=== PATIENT | male | born 1950 | race Caucasian/White ===

== ENCOUNTER → 2017-11-29 11:48 | Outpatient (CLI) | payer MEDICARE, OTHER, SELFPAY ==
--- NOTE | 2017-11-29 | DI.MRI.S_ITS ---
PROCEDURE: MR KNEE RT WO CON INDICATIONS: RIGHT INTERNAL DERANGEMENT TECHNIQUE: Noncontrast sagittal PD fast spin echo and T2 fast spin echo with fat saturation, sagittal 3-D FLASH with fat saturation; coronal T1 spin echo and PD fast spin echo with fat saturation, and axial PD fast spin echo with fat saturation through the knee. COMPARISON: [facility] [place], CR, XR KNEE ARTHRITIC SERIES RT, 11/13/2017, 14:53. FINDINGS: Image quality: Diagnostic. Bones and joint: There is no acute fracture or dislocation. No suspicious osseous lesions are evident. There is a small knee joint effusion with an associated moderate-sized Stubbs's cyst. Mild edema about the Stubbs's cyst is present. There appears to be a joint body within the region of the femoral notch, measuring approximately 6-7 mm in maximal dimension (image 11, series 3). There is a moderate-sized defect in the hyaline articular cartilage along the weightbearing surface of the medial femoral condyle with underlying degenerative cystic change and reactive marrow edema. Heterogeneity and mild surface irregularity of the hyaline articular cartilage within the lateral tibiofemoral compartment is present. Cruciate ligaments: There is diffuse increased signal identified involving the femoral attachment of the anterior cruciate ligament, suggesting ligamentous sprain and possible partial thickness tearing. The posterior cruciate ligament is intact. Menisci: There is a transverse tear identified extending through the entire length of the medial meniscus at the junction of the body and posterior horn with separation of the meniscal fragments by approximately 10 mm. There may be a displaced meniscal flap extending over the posterior horn of the medial meniscus or the body of the medial meniscus extending into the medial gutter. There is irregular tearing identified involving the antrum posterior attachment of the lateral meniscus with moderate grade partial-thickness tearing evident. Fraying along the free edge of the body of the lateral meniscus is noted. Medial structures: The medial collateral ligament is intact. A very small amount of fluid is contained within the medial collateral ligament bursa. The semimembranosus tendon insertion is intact. The imaged portions of the pes anserinus tendons are unremarkable. No significant fluid is contained within the pes anserinus bursa. Lateral structures: The popliteal tendon is intact. The lateral collateral ligament proper (fibular collateral ligament) and the proximal tibiofibular ligaments are intact. The distal aspect of the biceps femoris tendon and the iliotibial band are intact. Anterior structures: The quadriceps and patellar tendons are intact. There is no significant edema in the infrapatellar fat pad. IMPRESSION: 1. Mild to moderate degenerative changes of the right knee are most pronounced within the medial tibiofemoral compartment. 2. Complex tearing of the medial and lateral menisci as described. 3. Anterior cruciate ligament sprain with possible intrasubstance partial thickness tearing. 4. Small knee joint effusion with an associated probable leaking Stubbs's cyst and small intra-articular joint bodies. Dictated by: Jv Adams M.D. on 11/29/2017 at 12:35 Approved by: Jv Adams M.D. on 11/29/2017 at 12:44
== END ==
PROVIDERS: PCP Family Medicine; Visit Provider Orthopaedic Surgery
DX: S83.231A Complex tear of medial meniscus, current injury, right knee, initial encounter (principal); S83.271A Complex tear of lateral meniscus, current injury, right knee, initial encounter; S83.511A Sprain of anterior cruciate ligament of right knee, initial encounter; M25.461 Effusion, right knee
CPT/HCPCS: 73721

== ENCOUNTER → 2018-08-04 10:11 | Outpatient (CLI) | payer MEDICARE, OTHER, SELFPAY ==
--- NOTE | 2018-08-04 | DI.RAD.S_ITS ---
PROCEDURE: XR LUMBAR SPINE 2-3V INDICATIONS: Low Back Pain TECHNIQUE: 3 views of the lumbar spine were acquired. COMPARISON: None. FINDINGS: Bones: 5 [id number] vertebrae are present. There is minimal retrolisthesis at L1-L2 an L2-L3. There is a central compression fracture of the L1 vertebral body with approximately 80% loss of height centrally. No retropulsed fragment in the spinal canal. There is mild multilevel disc space narrowing. There is mild facet arthropathy in the lower lumbar spine. Soft tissues: Overlying bowel gas pattern is normal. No suspicious soft tissue calcifications. IMPRESSION: 1. Severe central compression fracture of the L2 vertebral body of indeterminate acuity. No retropulsed fragments in the spinal canal. Dictated by: Elvis Yi M.D. on 08/04/2018 at 23:52 Approved by: Elvis Yi M.D. on 08/04/2018 at 23:56
== END ==
PROVIDERS: PCP Family Medicine; Visit Provider Chiropractor
DX: M54.5 Low back pain (principal); M48.56XA Collapsed vertebra, not elsewhere classified, lumbar region, initial encounter for fracture
CPT/HCPCS: 72100

== ENCOUNTER 2018-09-19 11:41 | Day surgery (SDC) | payer MEDICARE, OTHER, SELFPAY ==
--- NOTE | 2018-09-19 | PATH_ITS ---
[facility] Accession Number: [id number] . 01 Material submitted: . PART A: gastrointestinal site - GASTRIC BIOPSY PART B: esophagus - DISTAL ESOPHAGUS . 01 Clinical history: . A: R/O H.PYLORI . 02 Diagnosis: A. Stomach, Biopsy: Antral mucosa with mild chronic gastritis. Negative for Helicobacter by immunohistochemistry. Negative for intestinal metaplasia. Negative for dysplasia and malignancy. . B. Distal Esophagus, Biopsy: Squamocolumnar junctional mucosa with no diagnostic abnormality. Negative for intestinal metaplasia by alcian blue stain. Negative for dysplasia and malignancy. [facility]/09/21/2018 . 02 Electronically signed: . Oralia Diaz MD, Pathologist NPI- [id number] . 01 Gross description: . Part A: GASTRIC BIOPSY: Received in formalin are 2 fragment(s) of simons, soft tissue measuring 0.1 x 0.1 x 0.1 cm to 0.2 x 0.2 x 0.2 cm which is entirely submitted and submitted entirely in 1 cassette(s) Part B: DISTAL ESOPHAGUS: Received in formalin are 2 fragment(s) of simons, soft tissue measuring 0.1 x 0.1 x 0.1 cm to 0.2 x 0.1 x 0.1 cm which is entirely submitted and submitted entirely in 1 cassette(s) /[facility] . 02 Microscopic: . A. An immunohistochemical stain was performed to evaluate for Helicobacter organisms and is negative. The control stain showed appropriate reactivity. . B. An alcian blue stain was performed to evaluate for intestinal metaplasia and is negative. The control stain showed appropriate reactivity. . . * This test was developed and its performance characteristics determined by [employer]. It has not been cleared or approved by the U.S. Food and Drug Administration. The FDA has determined that such clearance or approval is not necessary. This test is used for clinical purposes. It should not be regarded as investigational or for research. . 02 Pathologist provided ICD-10: R10.9 . 02 CPT . 550139, 186254, 915281, E65865 Performed at: 01 [facility] [address] [id number] MD Elvis Osman MD Phone: [phone] Performed at: [address] [id number] MD Oralia Diaz MD Phone: [phone]
[2018-09-19] MEDS: SODIUM CHLORIDE 0.9% 1,000 ML 42 ML IV (12:45)
[2018-09-19 12:53] VITALS: BP 132/86; PULSE 88; RESP 14; TEMP 36.3; O2SAT 99; BMI 24.0
--- NOTE | 2018-09-19 13:21 | PM.PREOP ---
Pre-operative Note Interval Note History & Physical reviewed/Exam performed by Physician: No Changes to H&P: No ASA Class (for procedural sedation): II
--- NOTE | 2018-09-19 13:22 | PM.OP.ENDO ---
Operative Date/Time/Diagnoses Date of procedure: 09/19/18 Time of procedure: 13:22 Pre-op diagnosis: See indication and findings Procedure & Clinicians Study performed: EGD Same procedure as scheduled: Yes Indications: Dysphagia Surgeon: Millie Patterson Procedure Notes Procedure in detail: After informed consent was obtained the patient was placed in left lateral decubitus position. The video upper scope was placed into the oropharynx with the patient's health swallowed into the esophagus. The esophagus stomach and duodenum were carefully examined. On withdrawal, retroflexed view of the GE junction was performed. The scope was removed. The patient tolerated procedure well. Blood loss none Complications none Sedation Total sedation time 10 minutes Fentanyl 100 mg Versed 5 mg IV titration Findings 1. Grade B to C esophagitis with areas of erosion. There is also some scarring above this. This area is biopsied to rule out Winters's esophagus. No protruding lesion was seen 2. Very wide open Schatzki's ring not even noticeable on most images 3. Moderately intense distal gastritis biopsies taken to rule out Helicobacter 4. Duodenal erosions Patient will be placed on omeprazole 20 mg p.o. q.day. He should then follow up in the office in about 1 month to discuss further in terms of long-term strategies, his dysphagia, and whether not Helicobacter needs to be treated.
[2018-09-19] MEDS: fentaNYL 250 MCG/5 ML INJ IV (13:51)
[2018-09-19] MEDS: MIDAZOLAM 5 MG/5 ML VIAL IV (13:57)
--- NOTE | 2018-09-19 14:05 | PM.HP.1 ---
History of Present Illness Chief complaint: [id number] Patient History Medical History (Updated 09/19/18 @ 12:53 by Johanne Law RN) Abnormal gag reflex (Acute) Acid reflux (Acute) Back fracture (Acute ~02/11/18) Hypertension (Acute) Surgical History (Updated 09/19/18 @ 12:53 by Johanne Law RN) H/O hernia repair (Acute) Social History household members: other Family & Social History Social History: household members other Meds Home Medications Medication Instructions Recorded Confirmed Type lisinopril 5 mg PO DAILY 09/19/18 09/19/18 History lisinopril 20 mg PO DAILY 09/19/18 09/19/18 History Allergies Allergy/AdvReac Type Severity Reaction Status Date / Time mayonnaise AdvReac Intermediate Stimulates Verified 09/19/18 12:48 Gag Reflex Exam Vital Signs (past 8 hours): - 09/19/18 12:53 Temperature 97.3 F L Pulse Rate 88 Respiratory Rate 14 Blood Pressure 132/86 Pulse Oximetry 99 Oxygen Delivery Method Room Air
[2018-09-19 14:09] VITALS: BP 87/62; PULSE 86; RESP 17; TEMP 36.6; O2SAT 96
[2018-09-19 14:12] VITALS: BP 83/59; PULSE 85; RESP 16; O2SAT 97
[2018-09-19 14:17] VITALS: BP 88/58; PULSE 81; RESP 17; O2SAT 96
[2018-09-19 14:23] VITALS: BP 90/65; PULSE 82; RESP 22; TEMP 36.8; O2SAT 96
[2018-09-19 14:30] VITALS: BP 103/64; PULSE 73; RESP 15; TEMP 36.7; O2SAT 99
== END 2018-09-19 14:44 ==
LOC: ENDO 11:42
PROVIDERS: PCP Family Medicine; Visit Provider Internal Medicine Gastroenterology
PROC: 0DJ08ZZ Inspection of Upper Intestinal Tract, Via Natural or Artificial Opening Endoscopic (ICD-10-PCS; CPT 43235; principal; 2018-09-19 13:30)
DX: K20.9 Esophagitis, unspecified (principal); K22.2 Esophageal obstruction; K29.70 Gastritis, unspecified, without bleeding; K26.9 Duodenal ulcer, unspecified as acute or chronic, without hemorrhage or perforation; I10 Essential (primary) hypertension; R11.2 Nausea with vomiting, unspecified; R13.10 Dysphagia, unspecified
CPT/HCPCS: 43239; 88305; 88313; 88342; J2250; J3010

== ENCOUNTER 2019-02-20 11:35 | Day surgery (SDC) | payer MEDICARE, OTHER, SELFPAY ==
--- NOTE | 2019-02-20 | PATH_ITS ---
[facility] Accession Number: [id number] . 01 Material submitted: . esophagus, E-G Junction - GE JUNCTION BIOPSIES . 01 Clinical history: . RULE OUT AVILA'S . 02 Diagnosis: Gastroesophageal Junction, Biopsies: Squamocolumnar junctional mucosa with no diagnostic abnormality. Negative for intestinal metaplasia. Negative for dysplasia and malignancy. . MRV 02/22/2019 1431 Local . 02 Electronically signed: . Oralia Diaz MD, Pathologist NPI- [id number] . 01 Gross description: . GE JUNCTION BIOPSIES: Received in formalin are 2 fragment(s) of simons, soft tissue measuring 0.1 x 0.1 x 0.1 cm to 0.2 x 0.1 x 0.1 cm submitted entirely in 1 cassette(s) /[facility] 02/20/2019 2018 Local . 02 Microscopic: . An AB/PAS stain was performed to evaluate for intestinal metaplasia and is negative. The control stain showed appropriate reactivity. . 02 Pathologist provided ICD-10: R13.10 . 02 CPT . 975507, 406948 Performed at: 01 [facility] [address] [facility] [place], [place], [place] [id number] MD Elvis Osman MD Phone: [phone] Performed at: 02 [facility] [address] [place], [place] [id number] MD Oralia Diaz MD Phone: [phone]
--- NOTE | 2019-02-20 08:14 | PM.HP.1 ---
History of Present Illness History of Present Illness Date Patient Seen: 02/20/19 Chief complaint: [id number] Narrative: 68-year-old male with history of reflux esophagitis on EGD performed September 2018 who is here for reassessment. Patient has been taking omeprazole daily and was last seen at our office on 11/20/2018. The patient has had improved symptoms of dysphagia since using the omeprazole. Patient History Medical History (Updated 09/19/18 @ 12:53 by Johanne Law RN) Abnormal gag reflex (Acute) Acid reflux (Acute) Back fracture (Acute ~02/11/18) Hypertension (Acute) Surgical History (Updated 09/19/18 @ 12:53 by Johanne Law RN) H/O hernia repair (Acute) Family & Social History Social History: household members other Meds Home Medications and Allergies Home Medications Medication Instructions Recorded Confirmed Type omeprazole 20 mg PO DAILY 02/20/19 02/20/19 History Allergies Allergy/AdvReac Type Severity Reaction Status Date / Time [facility] Adv[facility] Intermediate Stimulates Verified 02/20/19 12:50 Gag Reflex Exam Narrative Exam Narrative: General: Patient is well developed, not in apparent distress Cardiovascular: Regular rate and rhythm, no murmurs, rubs, or gallops; no evidence of edema; no palpable abdominal aortic aneurysm Gastrointestinal: Normoactive bowel sounds, soft, nontender, nondistended, no rebound tenderness, no hepatosplenomegaly, no evidence of hernia Assessment & Plan Assessment & Plan narrative: 68-year-old male with history of reflux esophagitis here for repeat EGD to check healing after adequate PPI therapy Regarding the procedure(s), the risks and potential complications, benefits, and alternatives (including not doing the procedure) were discussed with the patient. The risks include but are not limited to bleeding, splenic injury, infection, perforation which may require surgical intervention, missed lesions, and adverse reactions to sedative medicines. After a question and answer period, the patient agreed to proceed with the procedure(s) and gives informed consent.
[2019-02-20 12:43] VITALS: BP 166/106; PULSE 92; RESP 20; TEMP 36.6; O2SAT 97; BMI 24.3
[2019-02-20] MEDS: SODIUM CHLORIDE 0.9% 1,000 ML 70 ML IV (12:48)
--- NOTE | 2019-02-20 13:27 | PM.OP.ENDO ---
Operative Date/Time/Diagnoses Date of procedure: 02/20/19 Procedure Notes Procedure in detail: Surgeon: Davis Talley MD Procedure: Esophagogastroduodenoscopy with biopsy Preoperative diagnosis: Reflux esophagitis in September 2018 Postoperative diagnosis: Small hiatal hernia, irregular Z-line status post biopsy Medications: Conscious sedation using 6 mg IV of Midazolam and 100 mcg IV of Fentanyl Preanesthesia Assessment An H and P was performed/updated and the Px?s ASA class is 2. The procedure was discussed in detail with the patient. The potential risks and complications including infection, bleeding, missed lesions, perforation, need for surgery in case of perforation, prolonged hospital stay, and were explained. A brief question and answer period was allotted and once all questions were answered, informed consent was obtained. The patient was brought back to the procedure room and placed on standard monitoring. The patient?s vital signs were monitored continuously throughout the entire procedure. Prior to starting, a timeout was performed to confirm the patient?s identity, allergies, medications, and procedure. Procedure in detail The patient was placed in left lateral decubitus position and a bite block was inserted. The tip of the upper endoscope was placed into the mouth and advanced without difficulty under direct visualization into the esophagus. Esophagus: The esophageal mucosa was noted to be normal with no evidence of esophagitis. The Z-line was irregular at 40 cm from the incisors and biopsies were performed to rule out Winters's esophagus. There was no note of any obstructing Schatzki ring Stomach: There was note of a small hiatal hernia on retroflexion. The gastric mucosa otherwise appeared normal with no evidence of ulcers Duodenum: The visualized duodenal mucosa was normal up until the 2nd portion of the duodenum The patient tolerated the procedure well and will be brought back to the recovery area to be discharged once criteria are met. The total physician intraservice time was 10 minutes. Complications There were no complications and estimated blood loss was minimal. Recommendations: Resume previous diet Anti-reflux measures at all times Continue outPx medications; the patient can attempt to wean the omeprazole to an as-needed basis as long as symptoms are well controlled Follow up pathology results Office follow up as needed An emergency contact number was given to the patient for any complications related to the procedure
[2019-02-20 13:50] VITALS: BP 107/73; PULSE 80; PULSE 81; RESP 12; RESP 16; TEMP 36.7; TEMP 36.9; O2SAT 93; O2SAT 95
[2019-02-20] MEDS: fentaNYL 250 MCG/5 ML INJ IV (13:50)
[2019-02-20] MEDS: MIDAZOLAM 5 MG/5 ML VIAL IV (13:50)
[2019-02-20 13:55] VITALS: BP 112/72; PULSE 80; RESP 18; O2SAT 94
[2019-02-20 14:08] VITALS: BP 110/70; RESP 12; O2SAT 94
[2019-02-20 14:50] VITALS: BP 121/81; PULSE 81; RESP 18; TEMP 36.6; O2SAT 97
--- NOTE | 2019-02-20 14:54 | SUR.PHASEII ---
Discharge note: VSS, O2 sat WNL. No complaints of pain or discomfort. IV discontinued. Discharge instructions given and explained with good understanding. Tolerating po without nausea. Stable for discharge to home.
== END 2019-02-20 15:25 | disposition home or self-care (01) ==
PROVIDERS: Family Provider Internal Medicine; PCP Internal Medicine; Visit Provider Internal Medicine Gastroenterology
PROC: 0DJ08ZZ Inspection of Upper Intestinal Tract, Via Natural or Artificial Opening Endoscopic (ICD-10-PCS; CPT 43235; principal; 2019-02-20 13:30)
DX: K21.0 Gastro-esophageal reflux disease with esophagitis (principal); K44.9 Diaphragmatic hernia without obstruction or gangrene; I10 Essential (primary) hypertension
CPT/HCPCS: 43239; J2250; J3010

== ENCOUNTER 2019-05-02 11:37 | Day surgery (SDC) | payer MEDICARE, OTHER, SELFPAY ==
--- NOTE | 2019-05-02 | PATH_ITS ---
[facility] Accession Number: [id number] . 01 Material submitted: . PART A: colon - ASCENDING COLON POLYP PART B: colon - COLON POLYP AT 20CM . 02 Diagnosis: A. Ascending Colon, Polyp, Biopsy: Tubular adenoma. . B. Colon, 20 cm Polyp, Biopsy: Tubular adenoma. MRV 05/06/2019 1303 Local . 02 Electronically signed: . Oralia Diaz MD, Pathologist NPI- [id number] . 01 Gross description: . Part A: ASCENDING COLON POLYP: Received in formalin is 1 fragment(s) of simons, soft tissue measuring 0.4 x 0.4 x 0.3 cm which is inked, bisected and submitted entirely in 1 cassette(s) Part B: COLON POLYP AT 20CM: Received in formalin is 1 fragment(s) of simons, soft tissue measuring 0.6 x 0.5 x 0.2 cm submitted entirely in 1 cassette(s) /[facility] 05/03/2019 0354 Local . 02 Pathologist provided ICD-10: D12.2, D12.6 . 02 CPT . 159728, 674782 Performed at: [address] [facility] [address], [place], [place] [id number] MD Elvis Omsan MD Phone: [phone] Performed at: 02 [facility] [address] [place], [place] [id number] MD Oralia Diaz MD Phone: [phone]
[2019-05-02] MEDS: SODIUM CHLORIDE 0.9% 1,000 ML 200 ML IV (12:01)
[2019-05-02 12:11] VITALS: BP 161/106; PULSE 104; RESP 20; TEMP 36.9; O2SAT 97; BMI 23.6
[2019-05-02 12:33] VITALS: BP 164/98
--- NOTE | 2019-05-02 13:16 | PM.HP.1 ---
History of Present Illness History of Present Illness Date Patient Seen: 05/02/19 Time Patient Seen: 13:16 Chief complaint: [id number] Narrative: Patient presents for colorectal screening. They had a previous colonoscopy 10 years ago which was reportedly negative. No personal or family history of colon cancer. On further history denies any recent gastrointestinal symptoms. No nausea, vomiting, abdominal pain, loss of appetite, unexplained weight loss, change in bowel habits, diarrhea, constipation, melena, hematochezia, or bright red blood per rectum. Patient History Medical History Abnormal gag reflex (Acute) Acid reflux (Acute) Back fracture (Acute ~02/11/18) Hypertension (Acute) Surgical History H/O hernia repair (Acute) Family & Social History Social History: household members other Tobacco & Substance use: Smoking Status Former smoker alcohol intake frequency a few times a month Substance Use Type does not use Meds Home Medications and Allergies Allergies Allergy/AdvReac Type Severity Reaction Status Date / Time mayonnaise AdvReac Intermediate Stimulates Verified 05/02/19 12:10 Gag Reflex Review of Systems Review of Systems Narrative: A 10 point review of systems is negative except as noted in the HPI Exam Vital Signs (past 8 hours): - 05/02/19 12:11 05/02/19 12:33 Temperature 98.5 F Pulse Rate 104 H Respiratory Rate 20 Blood Pressure 161/106 H 164/98 H Pulse Oximetry 97 Oxygen Delivery Method Room Air Narrative Exam Narrative: General-no acute distress, well nourished HEENT-moist mucous membranes, no scleral icterus Neck-supple, no lymphadenopathy Chest- non labored respirations, clear to auscultation bilaterally Cardiac-regular rate no peripheral edema Abdomen-soft, nontender, non distended Extremities-warm, well perfused Neurological-alert and oriented, no focal deficits Assessment & Plan Assessment and plan (1) Screening for colon cancer: Current visit: Yes Status: Acute Assessment & Plan narrative: The patient requires colorectal screening and colonoscopy is recommended. Technical details were discussed. Risks, benefits, alternatives explained. Risks including but not limited to myocardial infarction, aspiration, bleeding, pain, missed lesion, incomplete examination, need for further radiographic studies, colonic perforation, and need for major abdominal surgery were discussed. All questions were answered to their satisfaction, and they are in agreement with this plan.
--- NOTE | 2019-05-02 13:49 | PM.OP.ENDO ---
Operative Date/Time/Diagnoses Date of procedure: 05/02/19 Time of procedure: 13:49 Pre-op diagnosis: Screening colonoscopy Post-op diagnosis: same Procedure & Clinicians Study performed: Colonoscopy Same procedure as scheduled: Yes Indications: 68-year-old man was last colonoscopy 10 years ago presents for routine screening. Surgeon: Alberto Trujillo Procedure Notes SCOAP/Timeout: Performed Procedure in detail: Patient placed in left lateral decubitus position. Time out was performed. Procedural sedation was administered with Versed and Fentanyl. A rectal exam demonstrated no external hemorrhoids no internal masses. Colonoscopy scope was placed into the rectum and advanced through the colon to the cecum. The ileocecal valve was identified. The scope was then slowly withdrawn examining colon thoroughly in all directions. The colonoscopy was notable for the following 1. Ascending colon polyp less than 1 cm adenomatous in appearance removed with hot snare 2. Upper rectal polyp at 20 cm from the anal verge less than 1 cm in diameter adenomatous in appearance removed with hot snare 3. Sigmoid diverticulosis 4. Quality of prep fair 5. Grade 1 internal hemorrhoids Scope withdrawal time: 15 Sedation minutes: 27 Findings: diverticulosis, internal hemorrhoids and polyp Specimen(s): other (Two polyps) Impression: Polyps Post-procedure Recommendations: Colonscopy in 5 years Disposition: same day surgery
[2019-05-02] MEDS: MIDAZOLAM 5 MG/5 ML VIAL IV (13:50)
[2019-05-02] MEDS: fentaNYL 250 MCG/5 ML INJ IV (13:51)
[2019-05-02 13:53] VITALS: BP 132/92; PULSE 88; RESP 16; TEMP 36.9; O2SAT 98
[2019-05-02 13:58] VITALS: BP 119/92; PULSE 89; RESP 15; O2SAT 97
[2019-05-02 14:07] VITALS: BP 141/86; PULSE 82; RESP 12; O2SAT 98
[2019-05-02 14:16] VITALS: BP 135/93; PULSE 84; RESP 16; TEMP 37; O2SAT 99
== END 2019-05-02 14:30 | disposition home or self-care (01) ==
PROVIDERS: PCP Internal Medicine; Visit Provider Surgery
PROC: 0DJD8ZZ Inspection of Lower Intestinal Tract, Via Natural or Artificial Opening Endoscopic (ICD-10-PCS; CPT 45378; principal; 2019-05-02 13:00)
DX: Z12.11 Encounter for screening for malignant neoplasm of colon (principal); I10 Essential (primary) hypertension; K57.30 Diverticulosis of large intestine without perforation or abscess without bleeding; K64.0 First degree hemorrhoids; D12.2 Benign neoplasm of ascending colon; D12.6 Benign neoplasm of colon, unspecified
CPT/HCPCS: 45385; 99152; 99153; J2250; J3010

== ENCOUNTER → 2021-07-27 10:55 | Outpatient (CLI) | payer MEDICARE, OTHER, SELFPAY ==
--- NOTE | 2021-07-27 10:59 | DI.RAD.S_ITS ---
PROCEDURE: XR THORACIC SPINE 2V INDICATIONS: Segmental and somatic dysfunction of cervical region TECHNIQUE: 3 views of the thoracic spine were acquired. COMPARISON: [facility], CR, XR LUMBAR SPINE 2-3V, 08/04/2018, 10:29. [facility], CR, XR CERVICAL SPINE 2V OR 3V, 07/27/2021, 10:59. FINDINGS: Bones: No fractures or dislocations. No suspicious bony lesions. Moderate degenerative disc disease. Large anterior and lateral osteophytes are seen at multiple levels. 12 pairs of ribs are noted, and appear intact where visualized. Soft tissues: No paravertebral stripe thickening. IMPRESSION: Moderate degenerative changes in thoracic spine. Dictated by: Vania Wharton M.D. on 07/27/2021 at 17:32 Approved by: Vania Wharton M.D. on 07/28/2021 at 12:03
--- NOTE | 2021-07-27 10:59 | DI.RAD.S_ITS ---
PROCEDURE: XR CERVICAL SPINE 2V OR 3V INDICATIONS: Segmental and somatic dysfunction of cervical region TECHNIQUE: 3 view(s) of the cervical spine were acquired. COMPARISON: None. FINDINGS: Bones: No fractures or dislocations to the C7 level. The lateral masses of C1 appear intact on the odontoid view. There is moderate degenerative disc disease at C4-C5, and mild degenerative disc disease at C5-C6 and C6-C7. There is bilateral facet arthropathy scattered in cervical spine, most pronounced at C5-C6. No suspicious bony lesions. Soft tissues: No prevertebral soft tissue swelling. IMPRESSION: Degenerative disc and facet disease in cervical spine. Dictated by: Vania Wharton M.D. on 07/27/2021 at 17:35 Approved by: Vania Wharton M.D. on 07/28/2021 at 12:04
--- NOTE | 2021-07-27 11:10 | DI.RAD.S_ITS ---
PROCEDURE: XR LUMBAR SPINE 2-3V INDICATIONS: LOW BACK PAIN TECHNIQUE: 2 views of the lumbar spine were acquired. COMPARISON: [facility], CR, XR LUMBAR SPINE 2-3V, 08/04/2018, 10:29. FINDINGS: Bones: 5 [id number]-ynxxnnm vertebrae are present. There is normal bony alignment. Severe vertebral body compression fracture of L2 and mild compression fracture of T12, unchanged. No suspicious bony lesions. Mild degenerative disc disease. Moderate facet arthropathy at L4-L5 and L5-S1. Soft tissues: Overlying bowel gas pattern is normal. Atherosclerotic calcifications are noted. IMPRESSION: 1. Severe L2 compression fracture and mild compression fracture of T12, unchanged. 2. Degenerative disc and facet disease in lumbar spine. Dictated by: Vania Wharton M.D. on 07/27/2021 at 17:33 Approved by: Vania Wharton M.D. on 07/27/2021 at 17:34
== END ==
PROVIDERS: PCP Internal Medicine; Referring Provider Chiropractor; Visit Provider Chiropractor
DX: M99.01 Segmental and somatic dysfunction of cervical region (principal); M47.812 Spondylosis without myelopathy or radiculopathy, cervical region; M47.814 Spondylosis without myelopathy or radiculopathy, thoracic region; M47.816 Spondylosis without myelopathy or radiculopathy, lumbar region; M47.817 Spondylosis without myelopathy or radiculopathy, lumbosacral region; M51.36 Other intervertebral disc degeneration, lumbar region; M50.321 Other cervical disc degeneration at C4-C5 level; M48.54XA Collapsed vertebra, not elsewhere classified, thoracic region, initial encounter for fracture; M48.56XA Collapsed vertebra, not elsewhere classified, lumbar region, initial encounter for fracture; H81.90 Unspecified disorder of vestibular function, unspecified ear
CPT/HCPCS: 72040; 72070; 72100